=== PATIENT | female | born 1940 | race Caucasian/White ===

== ENCOUNTER 2020-07-21 08:00 | Outpatient (RCR) | payer MEDICARE, OTHER, SELFPAY ==
[2020-07-21 08:03] VITALS: BP 143/72; PULSE 89; RESP 16; TEMP 35.7; BMI 39.4
--- NOTE | 2020-07-21 09:47 | HP.PCM_ITS ---
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 (2) Lymphedema of left lower extremity Status: Chronic Code(s): I89.0 - Lymphedema, not elsewhere classified (3) Peripheral venous insufficiency Status: Chronic (4) Type 2 diabetes mellitus with other circulatory complications Status: Chronic Code(s): E11.59 - Type 2 diabetes mellitus with other circulatory complications (5) Chronic pain of left heel Status: Acute Code(s): M79.672 - Pain in left foot; G89.29 - Other chronic pain (6) Cellulitis of left leg without foot Status: Acute Code(s): L03.116 - Cellulitis of left lower limb History of Present Illness Date of Service: 07/21/20 Chief Complaint: bilateral leg swelling History of Wound: 74 year old woman with longstanding history of L leg wounds due to swelling from venous insufficiency and lymphedema. She has had venous and arterial testing at [facility], but we do not have these results, and they did not fax them after our request for them. 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 Arterial study reveals PETAR >1 multiphasic on the L and multiphasic waveforms on the R. She presents at the request of [facility] due to leg wounds that occur, heal, and then recur 1 month later. She has been wearing tubigrips with 6 inch Deandre wraps over top and has tolerated them well. She has her new lymphedema pump, and it is working much better, only using it on the L leg. She sleeps flat at night, tries to stay active (walks with a walker), and keeps her legs elevated while resting. She is here for the whole in the bottom of her left heel. She states it started with a bone spur on the left heel that was had surgery and never closed. She states this was around 2007. Since then she has been going to the wound center and [facility] and they are using Ginny and nothing is getting done as she says. X-rays were obtained we will obtain x-rays and any other studies that they have done at [facility] before we continue with an MRI of the left foot. She is extremely tender to palpate around the area. The need to offload totally on that left foot. She is currently on cephalexin and doxycycline for the infection. Past Medical History Past Medical History: Chronic Problems Non-pressure chronic ulcer of left heel and midfoot with fat layer exposed (Chronic) Peripheral venous insufficiency (Chronic) Lymphedema of left lower extremity (Chronic) Localized edema (Chronic) Type 2 diabetes mellitus with other circulatory complications (Chronic) Past Medical History: Chronic open wound left heel Surgical History: noncontributory Allergies/Adverse Reactions: Allergies Influenza Virus Vaccines Allergy (Verified 06/29/15 14:16) Hives Iodinated Contrast Media [CONTRASTS] Allergy (Verified 07/21/20 08:31) Rash Penicillins Allergy (Verified 06/29/15 14:16) Anaphylaxis caffeine [From Cafergot] Adverse Reaction (Verified 06/29/15 14:15) Nausea/Vom/Diarrhea ergotamine tartrate [From Cafergot] Adverse Reaction (Verified 06/29/15 14:15) Nausea/Vom/Diarrhea GARLIC OIL Allergy (Uncoded 07/21/20 08:31) Anaphylaxis Home Medications: Ambulatory Orders Medication Instructions Recorded Acetaminophen [Tylenol] 650 mg PO Q4H PRN PRN 06/29/15 Aspirin [Aspirin, Baby] 81 mg PO DAILY@0800 06/29/15 Docusate Sodium [Colace] 100 mg PO DAILY 06/29/15 Doxycycline Hyclate 100 mg PO BID 06/29/15 Furosemide 20 mg PO DAILY 06/29/15 Guaifen/Dextromethorphan/PE 5 ml PO 4X/DAY PRN PRN 06/29/15 [Tussi-Pres Pediatric Liq Packt] Insulin Aspart [Novolog] 6 unit SC BID 06/29/15 Insulin Aspart [Novolog] 16 unit SC DINNER 06/29/15 Insulin Glargine,Hum.rec.anlog 50 unit SC DAILY 06/29/15 [Lantus] Lisinopril [Zestril] 30 mg PO DAILY 06/29/15 Loperamide HCl [Loperamide] 2 mg PO Q6H PRN PRN 06/29/15 Magnesium Hydroxide [Milk Of 30 ml PO DAILY PRN PRN 06/29/15 Magnesia] Ondansetron [Zofran] 4 mg PO Q8H PRN PRN 06/29/15 Vits A,C,E/Lutein/Minerals 1 each PO DAILY 06/29/15 [Ocuvite with Lutein Tablet] Acetaminophen [Tylenol Extra 500 mg PO Q6H PRN PRN 07/21/20 Strength] Atorvastatin Calcium [Lipitor] 40 mg PO QHS 07/21/20 Cephalexin [Keflex] 500 mg PO 4X/DAY 07/21/20 Clopidogrel Bisulfate [Plavix] 75 mg PO DAILY 07/21/20 Cyanocobalamin (Vitamin B-12) 1,000 mcg PO DAILY 07/21/20 [Vitamin B-12] Flaxseed Oil 1,200 mg PO TID 07/21/20 Guaifenesin [Mucinex] 600 mg PO BID 07/21/20 Hydrocortisone 1% Oint [Hytone] 1 applic TOPICAL TID PRN 07/21/20 Insulin Aspart [Novolog Flexpen 8 units SC BREAKFAST 07/21/20 ([facility])] Insulin Aspart [Novolog Flexpen 13 units SC DAILY 07/21/20 ([facility])] Latanoprost 0.005% [Xalatan 1 drp EACH EYE QHS 07/21/20 Opthalmic] Metoprolol Tartrate 25 mg PO BID 07/21/20 Polyethylene Glycol 3350 [Miralax] 17 gm PO BID PRN 07/21/20 Timolol 0.5% [Timoptic] 1 drp EACH EYE BID 07/21/20 Lives: Alone, [facility] - Assisted living Smoking Status: Never smoker Tobacco Use: Non-smoker Alcohol: None Drugs: None Review of Systems Constitutional: Denies: Chills, Fever Eyes: Denies: Blurred vision, Drainage, Pain HEENT: Denies: Difficulty Hearing, Difficulty Swallowing, Sore Throat, Visual Changes Cardiovascular: Denies: Chest Pain, Palpitations, Syncope Respiratory: Denies: Cough, Shortness of Breath Gastrointestinal: Denies: Abdominal Pain, Nausea, Vomiting Genitourinary: Denies: Dysuria, Frequency Musculoskeletal: Reports: - - Left leg from knee down swollen and red. Denies: Joint Pain, Muscle pain Skin: Reports: Rash, Skin Changes, Wounds - He heel. Denies: Jaundice Neurological: Denies: Balance problems, Change in Speech, Difficulty swallowing, Focal weakness Psychiatric: Denies: Anxiety, Depression Endocrine: Denies: Change in Body Habitus Hematologic/ Lymphatic: Reports: Hx of blood clot. Denies: Adenopathy - Physical Exam Vital Signs Temp Pulse Resp BP 96.2 F L 89 16 143/72 H 07/21/20 08:03 07/21/20 08:03 07/21/20 08:03 07/21/20 08:03 General: Oriented x3, Cooperative, Well developed HEENT: Atraumatic, PERRLA Oral: Moist Mucosa Neck: Supple, No JVD Lungs: Clear to auscultation, Normal air movement Cardiovascular: Regular rate, Regular Rhythm Abdomen: Bowel Sounds Present, Soft, Non Tender, No Hepato-splenomegaly Extremities: No clubbing, Edema - Left leg lymphedema and cellulitis Skin: Ulcer/ Wound - Left heel wound healing from 2007 per patient foot erythematous at the heel Wound Measurements and Assessment WC - Nurse 1 - General Ulcer Measurement Start: 07/21/20 08:02 Freq: Status: Active Protocol: Activity Type Activity Date Activity User E-Sign Co-Sign Detail Recorded Client Recorded Date Recorded By Document 07/21/20 08:03 [facility] [id number] 07/21/20 08:28 [facility] 07/21/20 08:03 Wound Center Nurse 1 [Ulcer Assessment] #1- L PLANTAR HEEL\ -Combined with other wound No -Current Size (cm) - Length 0.4 -Current Size (cm) - Width 0.2 -Current Size (cm) - Depth 0.3 -Total Square Cm 0.08 -Date of Last Picture (Recall this 07/21/20 field) -Photo Taken Yes -Epithelialization None Present -Tunneling No -Undermining/Tunneling Yes -Undermining/Tunneling Starts (O' 12 clock) -Undermining/Tunneling Ends (O'clock) 12 -Maximum Distance (cm) 0.3 -Circular Undermining Yes -Exudate Amt Small -Exudate Type Serosanguineous -Wound Margin Distinct, Outline Attached -Granulation Amt Large (67-100%) -Granulation Quality [place] -Slough/Fibrin Yes -Necrosis Amt Small (1-33%) -Necrotic Tissue Type Adherent Slough -Texture (Stacy-wound Skin Appearance) Assessed, Scarring -Moisture (Stacy-wound Skin Appearance Assessed,Dry/ ) Scaly -Color (Stacy-wound Skin Appearance) Assessed -Temperature (Stacy-wound Skin No Abnormality Appearance) (Pt Warm) -Tenderness on Palpation (Stacy-wound Yes Skin Appearance) -Ulcer Cleansing Rinsed/ Irrigated with Saline -Foul Odor after Cleansing No -Anesthetic Used 5% Lidocaine Gel [Edema Assessment] -Lower Limb Edema Present Yes -Right Calf (cm) 41.2 -Right Ankle (cm) 24.4 -Left Calf (cm) 59.3 -Left Ankle (cm) 28.6 WC - Nurse 2 - General Ulcer CM Notes Start: 07/21/20 08:02 Freq: Status: Active Protocol: Activity Type Activity Date Activity User E-Sign Co-Sign Detail Recorded Client Recorded Date Recorded By Document 07/21/20 08:56 MW [id number] 07/21/20 09:05 MW 07/21/20 08:56 Wound Center Nurse 2 [Procedure/Treatment] #1- L PLANTAR HEEL\ -Time 08:56 -Correct Patient Yes -Correct Side, Site, Position Yes -Correct Procedure Yes -Procedure Performed Yes -Type of Procedure Debridement -Clinical Debridement Subcutaneous -Tissue Removed Subcutaneous -Post Debridement (cm) - Length 0.5 -Post Debridement (cm) - Width 0.3 -Post Debridement (cm) - Depth 0.3 -Total Square (Post) (cm) 0.15 -Area of Debridement (cm) - Length 0.5 -Area of Debridement (cm) - Width 0.3 -Total Square (Area) (cm) 0.15 -Tunneling No -Undermining/Tunneling No -Circular Undermining No -Wound/Ulcer Outcome Not Healed -Ulcer Cleansing Rinsed/ Irrigated with Saline -Foul Odor after Cleansing No -Bioengineered Tissue No -Bleeding Controlled with Pressure -Offloading No -Treatment Response Procedure Tolerated Well -Debridement - Subq, 1st 20sq cm Yes [See Physician Procedure note for Specifics] Pain Scale: 0-10 Numeric [Pain] -Is Patient Pain Free? Yes - Nurse 3 - General Ulcer D/C NN Start: 07/21/20 08:02 Freq: Status: Active Protocol: Activity Type Activity Date Activity User E-Sign Co-Sign Detail Recorded Client Recorded Date Recorded By Document 07/21/20 09:30 [facility] [id number] 07/21/20 09:31 [facility] 07/21/20 09:30 Wound Care Nurse 3 [Wound Dressing] #1- L PLANTAR HEEL\ -Ulcer Cleansing Rinsed/ Irrigated with Saline -Foul Odor after Cleansing No -Primary Dressing Applied Promogran -Primary Dressing Covered/Secured Dry Gauze & with Roll Gauze, Secured with Tape,Other -Other Covering HEEL HAT -Promogran 2 [Compression Applied] Right -Other OWN COMPRESSION STOCKING Left -Compression Wrap Deandre Wrap [Post Procedure Tolerated] -Treatment Response Procedure Tolerated Well Pain Scale: 0-10 Numeric [Pain] -Is Patient Pain Free? Yes WC - Visit Discharge [Visit Discharge Information] -Discharge Condition Stable -Ambulatory Status Wheelchair -Transportation TRANSPORT [Facility Notification] -Other ASSISTED LIVING Musculoskeletal: No Tenderness to Palpation of Joints or Extremities Lymphatic: No Cervical, Supraclavicular, or Inguinal Adenopathy Neurological: Cranial nerves II-XII grossly intact, Neuro grossly intact Psych/Mental Status: Normal Affect, Appropriate, Alert and oriented to time, place, person, mood and affect Debridement Note Post-Debridement Measurements/Treatment WC - Nurse 2 - General Ulcer CM Notes Start: 07/21/20 08:02 Freq: Status: Active Protocol: Activity Type Activity Date Activity User E-Sign Co-Sign Detail Recorded Client Recorded Date Recorded By Document 07/21/20 08:56 MW [id number] 07/21/20 09:05 MW 07/21/20 08:56 Wound Center Nurse 2 #1- L PLANTAR HEEL\ -Time 08:56 -Correct Patient Yes -Correct Side, Site, Position Yes -Correct Procedure Yes -Procedure Performed Yes -Type of Procedure Debridement -Clinical Debridement Subcutaneous -Tissue Removed Subcutaneous -Post Debridement (cm) - Length 0.5 -Post Debridement (cm) - Width 0.3 -Post Debridement (cm) - Depth 0.3 -Total Square (Post) (cm) 0.15 -Area of Debridement (cm) - Length 0.5 -Area of Debridement (cm) - Width 0.3 -Total Square (Area) (cm) 0.15 -Tunneling No -Undermining/Tunneling No -Circular Undermining No -Wound/Ulcer Outcome Not Healed -Ulcer Cleansing Rinsed/ Irrigated with Saline -Foul Odor after Cleansing No -Bioengineered Tissue No -Bleeding Controlled with Pressure -Offloading No -Treatment Response Procedure Tolerated Well -Debridement - Subq, 1st 20sq cm Yes Pain Scale: 0-10 Numeric Is Patient Pain Free? Yes - Nurse 3 - General Ulcer D/C NN Start: 07/21/20 08:02 Freq: Status: Active Protocol: Activity Type Activity Date Activity User E-Sign Co-Sign Detail Recorded Client Recorded Date Recorded By Document 07/21/20 09:30 [facility] [id number] 07/21/20 09:31 [facility] 07/21/20 09:30 Wound Care Nurse 3 #1- L PLANTAR HEEL\ -Ulcer Cleansing Rinsed/ Irrigated with Saline -Foul Odor after Cleansing No -Primary Dressing Applied Promogran -Primary Dressing Covered/Secured with Dry Gauze & Roll Gauze, Secured with Tape,Other -Other Covering HEEL HAT -Promogran 2 Right -Other OWN COMPRESSION STOCKING Left -Compression Wrap Deandre Wrap Treatment Response Procedure Tolerated Well Pain Scale: 0-10 Numeric Is Patient Pain Free? Yes WC - Visit Discharge Discharge Condition Stable Ambulatory Status Wheelchair Transportation TRANSPORT Other ASSISTED LIVING Wound debrided: He heel Type of Debridement: Excisional debridement Anesthesia Used: 5% Lidocaine Gel Depth: Down to and including healthy tissue, in the subcutaneous layer Percentage of wound debrided: 100 Instrument Used: 3mm curette Tissue Removed: Devitalized tissue callus Severity: Limited To Skin Breakdown Assessment/Plan Collect x-rays and information from [facility] wound center. Aerobic and anaerobic cultures obtained Assessment: Lymphedema left leg. Cellulitis left leg. Chronic open wound left heel with infection. Diabetes type 2 Plan: Wash left heel with Hibiclens or antibacterial soap and apply Promogran to site cover with Adaptic and gauze and Javed. Tubigrip and Deandre wraps to left leg. Follow-up in 2 weeks. We will call with results of cultures and obtain information from previous care
== END 2020-07-30 23:59 ==
LOC: WC 08:00
PROVIDERS: PCP Pediatrics Pediatric Endocrinology; Referring Provider Podiatrist Foot & Ankle Surgery
DX: E11.621 Type 2 diabetes mellitus with foot ulcer (principal); L97.422 Non-pressure chronic ulcer of left heel and midfoot with fat layer exposed; I89.0 Lymphedema, not elsewhere classified; E11.59 Type 2 diabetes mellitus with other circulatory complications; M79.672 Pain in left foot; G89.29 Other chronic pain; L03.116 Cellulitis of left lower limb; I87.2 Venous insufficiency (chronic) (peripheral); Z79.4 Long term (current) use of insulin; Z79.82 Long term (current) use of aspirin; Z79.899 Other long term (current) drug therapy; Z88.0 Allergy status to penicillin; Z88.8 Allergy status to other drugs, medicaments and biological substances
CPT/HCPCS: 11042; 87070; 87075; 87205; 99203; G0463

== ENCOUNTER 2020-08-18 10:30 | Outpatient (RCR) | payer MEDICARE, OTHER, SELFPAY ==
[2020-07-31 00:14] VITALS: BP 143/72; PULSE 89; RESP 16; TEMP 35.7
[2020-08-04 10:41] VITALS: BP 135/63; PULSE 79; RESP 18; TEMP 36; BMI 39.4
--- NOTE | 2020-08-04 12:51 | PCM.WC.PN ---
History of Present Illness Date of Service: 08/04/20 Chief Complaint: bilateral leg swelling History of Wound: 74 year old woman with longstanding history of L leg wounds due to swelling from venous insufficiency and lymphedema. She has had venous and arterial testing at [facility], but we do not have these results, and they did not fax them after our request for them. 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 Arterial study reveals PETAR >1 multiphasic on the L and multiphasic waveforms on the R. She presents at the request of [facility] due to leg wounds that occur, heal, and then recur 1 month later. She has been wearing tubigrips with 6 inch Deandre wraps over top and has tolerated them well. She has her new lymphedema pump, and it is working much better, only using it on the L leg. She sleeps flat at night, tries to stay active (walks with a walker), and keeps her legs elevated while resting. She is here for the whole in the bottom of her left heel. She states it started with a bone spur on the left heel that was had surgery and never closed. She states this was around 2007. Since then she has been going to the wound center and [place] and they are using Ginny and nothing is getting done as she says. X-rays were obtained we will obtain x-rays and any other studies that they have done at [facility] before we continue with an MRI of the left foot. She is extremely tender to palpate around the area. The need to offload totally on that left foot. She is currently on cephalexin and doxycycline for the infection. 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 Will change to Promogran and see if helps. patien has to pay for travel so will schedule QOWeek. Vital Signs: Vital Signs Temp Pulse Resp BP 96.8 F L 79 18 135/63 H 08/04/20 10:41 08/04/20 10:41 08/04/20 10:41 08/04/20 10:41 Oxygen Delivery Method Room Air Weight: 230 lb Body Mass Index (BMI) 39.4 Assessment & Plan Assessment/Plan (1) Non-pressure chronic ulcer of left heel and midfoot with fat layer exposed: Status: Chronic Code(s): L97.422 - Non-pressure chronic ulcer of left heel and midfoot with fat layer exposed Plan: Wash the area with hibiclens then apply the promogran and moisten then cover with gauze and tape qd follow up in 2 weeks Get the x-ray done at the assisted living facility (2) Chronic pain of left heel: Status: Acute Code(s): M79.672 - Pain in left foot; G89.29 - Other chronic pain (3) Peripheral venous insufficiency: Status: Chronic (4) Lymphedema of left lower extremity: Status: Chronic Code(s): I89.0 - Lymphedema, not elsewhere classified (5) Type 2 diabetes mellitus with other circulatory complications: Status: Chronic Code(s): E11.59 - Type 2 diabetes mellitus with other circulatory complications Physical Exam Const oriented x3 General Appearance: cooperative Exam Limitations: no limitations HEENT normocephalic Head and Scalp: normal to inspection Face and Sinus: normal facial exam Nose: external nose normal General Ear: hearing grossly impaired External Ear: external ears normal Mouth: oral and palatal mucosa normal Eyes PERRL General Eye: normal appearance of both eyes Neck full ROM General: normal visual inspection Resp normal respiratory effort Effort and Inspection: able to speak in complete sentences Auscultation: clear to auscultation bilaterally Cardio regular rate and regular rhythm Palpation: normal PMI Rate: regular rate Rhythm: regular rhythm GI Auscultation: normoactive bowel sounds Palpation: soft and no hepatosplenomegaly external exam normal Back/Spine Cervical Spine: cervical ROM normal Thoracic Spine / Upper Back: normal to inspection Lumbar Spine / Lower Back: normal to inspection Extremity normal to inspection General Extremity: normal exam except as noted Skin no rashes or lesions noted Wounds: wounds noted Wound Narrative: L heel plantar side Will also order x-ray of the foot Neuro oriented x3 Psych Appearance: grossly normal Speech: normal speech Thought Content: normal thought content Judgement: judgement good Debridement Note Debridement Note Post-Debridement Measurements and Additional Note: Post-Debridement Measurements/Treatment WC - Nurse 2 - General Ulcer CM Notes Start: 08/04/20 10:41 Freq: Status: Active Protocol: Activity Type Activity Date Activity User E-Sign Co-Sign Detail Recorded Client Recorded Date Recorded By Document 05/05/21 11:07 MW [id number] 08/04/20 11:12 MW 08/04/20 11:07 Wound Center Nurse 2 #1- L PLANTAR HEEL\ -Time 11:08 -Correct Patient Yes -Correct Side, Site, Position Yes -Correct Procedure Yes -Procedure Performed Yes -Type of Procedure Debridement -Clinical Debridement Subcutaneous -Tissue Removed Subcutaneous -Post Debridement (cm) - Length 0.9 -Post Debridement (cm) - Width 0.6 -Post Debridement (cm) - Depth 0.3 -Total Square (Post) (cm) 0.54 -Area of Debridement (cm) - Length 0.9 -Area of Debridement (cm) - Width 0.6 -Total Square (Area) (cm) 0.54 -Tunneling No -Undermining/Tunneling No -Circular Undermining No -Wound/Ulcer Outcome Not Healed -Ulcer Cleansing Rinsed/ Irrigated with Saline -Foul Odor after Cleansing No -Bioengineered Tissue No -Bleeding Controlled with Pressure -Offloading No -Debridement - Subq, 1st 20sq cm Yes Pain Scale: 0-10 Numeric Is Patient Pain Free? Yes Wound debrided: heel Laterality: Left Type of Debridement: Excisional debridement Anesthesia Used: 5% Lidocaine Gel Depth: Down to and including healthy tissue and in the subcutaneous layer Percentage of wound debrided: 100 Instrument Used: 3mm curette Tissue Removed: slough and fibrin Severity: Fat Layer Exposed Amount of bleeding with debridement: None Bleeding Controlled with: Pressure Patient tolerated procedure: Patient tolerated procedure well
[2020-08-18 10:32] VITALS: BP 135/52; PULSE 77; RESP 18; TEMP 36.8; BMI 39.4
--- NOTE | 2020-08-18 13:02 | PCM.WC.PN ---
History of Present Illness Date of Service: 08/19/20 Chief Complaint: bilateral leg swelling History of Wound: 74 year old woman with longstanding history of L leg wounds due to swelling from venous insufficiency and lymphedema. She has had venous and arterial testing at [facility], but we do not have these results, and they did not fax them after our request for them. 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 Arterial study reveals PETAR >1 multiphasic on the L and multiphasic waveforms on the R. She presents at the request of [facility] due to leg wounds that occur, heal, and then recur 1 month later. She has been wearing tubigrips with 6 inch Deandre wraps over top and has tolerated them well. She has her new lymphedema pump, and it is working much better, only using it on the L leg. She sleeps flat at night, tries to stay active (walks with a walker), and keeps her legs elevated while resting. She is here for the whole in the bottom of her left heel. She states it started with a bone spur on the left heel that was had surgery and never closed. She states this was around 2007. Since then she has been going to the wound center and [place] and they are using Ginny and nothing is getting done as she says. X-rays were obtained we will obtain x-rays and any other studies that they have done at [place] before we continue with an MRI of the left foot. She is extremely tender to palpate around the area. The need to offload totally on that left foot. She is currently on cephalexin and doxycycline for the infection. Subjective Subjective Still very painful but no sign of infection Objective Data Objective Data No sign of infection and macerated around the edgeof the wound but appears smaller and more shallow. Vital Signs: Vital Signs Temp Pulse Resp BP 98.2 F 77 18 135/52 H 08/18/20 10:32 08/18/20 10:32 08/18/20 10:32 08/18/20 10:32 Oxygen Delivery Method Room Air Weight: 230 lb Body Mass Index (BMI) 39.4 Physical Exam Const oriented x3 General Appearance: cooperative Exam Limitations: no limitations HEENT normocephalic Head and Scalp: normal to inspection Face and Sinus: normal facial exam Nose: external nose normal General Ear: hearing grossly impaired External Ear: external ears normal Mouth: oral and palatal mucosa normal Eyes PERRL General Eye: normal appearance of both eyes Neck full ROM General: normal visual inspection Resp normal respiratory effort Effort and Inspection: able to speak in complete sentences Auscultation: clear to auscultation bilaterally Cardio regular rate and regular rhythm Palpation: normal PMI Rate: regular rate Rhythm: regular rhythm GI Auscultation: normoactive bowel sounds Palpation: soft and no hepatosplenomegaly external exam normal Back/Spine Cervical Spine: cervical ROM normal Thoracic Spine / Upper Back: normal to inspection Lumbar Spine / Lower Back: normal to inspection Extremity normal to inspection General Extremity: normal exam except as noted Skin no rashes or lesions noted Neuro oriented x3 Psych Appearance: grossly normal Speech: normal speech Thought Content: normal thought content Judgement: judgement good Debridement Note Debridement Note Post-Debridement Measurements and Additional Note: Post-Debridement Measurements/Treatment - Nurse 1 - General Ulcer Assessment Start: 08/04/20 10:41 Freq: Status: Active Protocol: CHERRY Activity Type Activity Date Activity User E-Sign Co-Sign Detail Recorded Client Recorded Date Recorded By Document 08/04/20 10:41 [id number] 08/04/20 10:48 Document 08/18/20 10:32 [facility] [id number] 08/18/20 10:40 [facility] 08/04/20 08/18/20 10:41 10:32 - Today's Visit Information Type of service Follow-up Visit Follow-up Visit (Physician/OIL FIELD RIG BUILDER (Physician/OIL FIELD RIG BUILDER ) ) Arrival Mode Ambulatory, Ambulatory, Walker Walker Transfer Assistance None None Patient Identification Verified (Name & Yes Yes ) Patient Requires Transmission-Based No No Precautions Finger Stick Blood Sugar(mg/dl) (if 117 indicated): Blood Sugar Stated by Patient Height and Weight Body Mass Index (BMI) 39.4 39.4 BMI Classification Obese Obese Vital Signs Temperature (97.8 F-99.1 F) 96.8 F L 98.2 F Temperature Source Temporal Temporal Pulse Rate (60-100) 79 77 Pulse Location Monitor Monitor Respiratory Rate (12-18) 18 18 Respiratory rate source Observation Observation Oxygen Delivery Method Room Air Room Air Blood Pressure (90/60-120/80) 135/63 H 135/52 H Blood Pressure Mean (mm Hg) 87 79 Source Monitor Monitor Position Sitting Sitting Blood Pressure Location Left Arm Left Forearm History Since Last Visit- (Skip if this is Patient's initial visit) Have you changed medications since your No No last visit? Any new allergies or adverse reactions No No Had a fall/change in ADL's that may No No increase risk of falls Signs or symptoms of abuse and/or No No neglect since last visit Have you been in the hospital since your No No last visit? Has dressing in place as prescribed Yes Yes Has compression in place as prescribed Yes N/A Has offloadiing in place as prescribed Yes Yes Experienced any changes in pain level or No No management Left Footwear Surgical Shoe Surgical Shoe with pressure with pressure relief insole relief insole Right Footwear Regular Shoe Regular Shoe Pain Scale: 0-10 Numeric Is Patient Pain Free? Yes Yes - Nurse 1 - General Ulcer Measurement Start: 08/04/20 10:41 Freq: Status: Active Protocol: Activity Type Activity Date Activity User E-Sign Co-Sign Detail Recorded Client Recorded Date Recorded By Document 08/04/20 10:41 [id number] 08/04/20 10:48 KR Document 08/18/20 10:32 [facility] [id number] 08/18/20 10:40 [facility] 08/04/20 08/18/20 10:41 10:32 Wound Center Nurse 1 #1- L PLANTAR HEEL\ -Combined with other wound No No -Current Size (cm) - Length 0.6 0.5 -Current Size (cm) - Width 0.5 0.3 -Current Size (cm) - Depth 0.2 0.3 -Total Square Cm 0.30 0.15 -Photo Taken No No -Epithelialization None Present None Present -Tunneling No No -Undermining/Tunneling No No -Circular Undermining No No -Exudate Amt Medium Medium -Exudate Type Serosanguineous Serosanguineous -Wound Margin Distinct, Distinct, Outline Outline Attached Attached -Granulation Amt Large (67-100%) Large (67-100%) -Granulation Quality [place] -Slough/Fibrin Yes Yes -Necrosis Amt Small (1-33%) Small (1-33%) -Necrotic Tissue Type Adherent Slough Adherent Slough -Texture (Stacy-wound Skin Appearance) Assessed, Assessed,Rash Scarring -Moisture (Stcay-wound Skin Appearance) Assessed,Dry/ Assessed, Scaly Maceration,Dry/ Scaly -Color (Stacy-wound Skin Appearance) Assessed Assessed,Palor -Temperature (Stacy-wound Skin No Abnormality No Abnormality Appearance) (Pt Warm) (Pt Warm) -Tenderness on Palpation (Stacy-wound No Yes Skin Appearance) -Ulcer Cleansing Rinsed/ Wound Cleanser Irrigated with Saline -Foul Odor after Cleansing No Yes, Due to Product Use -Anesthetic Used 4% Lidocaine 5% Lidocaine Solution Gel Lower Limb Edema Present Yes Left Calf (cm) 60.2 58.5 Left Ankle (cm) 32.1 25.5 - Nurse 2 - General Ulcer CM Notes Start: 08/04/20 10:41 Freq: Status: Active Protocol: Activity Type Activity Date Activity User E-Sign Co-Sign Detail Recorded Client Recorded Date Recorded By Document 08/04/20 11:07 MW [id number] 08/04/20 11:12 MW Document 08/18/20 10:55 MW [id number] 08/18/20 10:58 MW 08/04/20 08/18/20 11:07 10:55 Wound Center Nurse 2 #1- L PLANTAR HEEL\ -Time 11:08 10:55 -Correct Patient Yes Yes -Correct Side, Site, Position Yes Yes -Correct Procedure Yes Yes -Procedure Performed Yes Yes -Type of Procedure Debridement Debridement -Clinical Debridement Subcutaneous Subcutaneous -Tissue Removed Subcutaneous Subcutaneous -Post Debridement (cm) - Length 0.9 0.7 -Post Debridement (cm) - Width 0.6 0.7 -Post Debridement (cm) - Depth 0.3 0.2 -Total Square (Post) (cm) 0.54 0.49 -Area of Debridement (cm) - Length 0.9 0.7 -Area of Debridement (cm) - Width 0.6 0.7 -Total Square (Area) (cm) 0.54 0.49 -Tunneling No No -Undermining/Tunneling No No -Circular Undermining No No -Wound/Ulcer Outcome Not Healed Not Healed -Ulcer Cleansing Rinsed/ Rinsed/ Irrigated with Irrigated with Saline Saline -Foul Odor after Cleansing No No -Bioengineered Tissue No No -Bleeding Controlled with Pressure Pressure -Offloading No No -Treatment Response Procedure Tolerated Well -Debridement - Subq, 1st 20sq cm Yes Yes Pain Scale: 0-10 Numeric Is Patient Pain Free? Yes Yes - Nurse 3 - General Ulcer D/C NN Start: 08/04/20 10:41 Freq: Status: Active Protocol: Activity Type Activity Date Activity User E-Sign Co-Sign Detail Recorded Client Recorded Date Recorded By Document 08/18/20 11:08 BOB [id number] 08/18/20 11:09 BOB 08/18/20 11:08 Wound Care Nurse 3 #1- L PLANTAR HEEL\ -Primary Dressing Applied Promogran -Primary Dressing Covered/Secured with Dry Gauze,Dry Gauze & Roll Gauze,Secured with Tape -Promogran 1 Pain Scale: 0-10 Numeric Is Patient Pain Free? Yes WC - Visit Discharge Discharge Condition Stable Ambulatory Status Walker Accompanied by [facility] Wound debrided: L heel Type of Debridement: Excisional debridement Anesthesia Used: 5% Lidocaine Gel Depth: Down to and including healthy tissue and in the subcutaneous layer Percentage of wound debrided: 100 Instrument Used: 5mm curette Tissue Removed: devitallized tissue and fibrin Severity: Fat Layer Exposed Amount of bleeding with debridement: Moderate Bleeding Controlled with: Compression and gauze Patient tolerated procedure: Patient tolerated procedure well Assessment/Plan Assessment/Plan (1) Non-pressure chronic ulcer of left heel and midfoot with fat layer exposed: CODE(S): Code(s): L97.422 - Non-pressure chronic ulcer of left heel and midfoot with fat layer exposed PLAN: wash the heel with antibacterial soap and apply Promogran to the area no moisture or adaptic d gauze dressing over top follow up 2 weeks (2) Chronic pain of left heel: CODE(S): Code(s): M79.672 - Pain in left foot; G89.29 - Other chronic pain (3) Cellulitis of left leg without foot: CODE(S): Code(s): L03.116 - Cellulitis of left lower limb PLAN: continue the deandre wraps to the legs (4) Peripheral venous insufficiency: (5) Lymphedema of left lower extremity: CODE(S): Code(s): I89.0 - Lymphedema, not elsewhere classified PLAN: Discuss with Cardiology about bumping legs again
== END 2020-08-30 23:59 ==
LOC: WC 10:30
PROVIDERS: PCP Pediatrics Pediatric Endocrinology; Referring Provider Podiatrist Foot & Ankle Surgery
DX: L97.422 Non-pressure chronic ulcer of left heel and midfoot with fat layer exposed (principal); M79.672 Pain in left foot; G89.29 Other chronic pain; L03.116 Cellulitis of left lower limb; I89.0 Lymphedema, not elsewhere classified; I87.2 Venous insufficiency (chronic) (peripheral); I83.91 Asymptomatic varicose veins of right lower extremity; I82.461 Acute embolism and thrombosis of right calf muscular vein; E11.59 Type 2 diabetes mellitus with other circulatory complications
CPT/HCPCS: 11042

== ENCOUNTER 2020-09-08 10:30 | Outpatient (RCR) | payer MEDICARE, OTHER, SELFPAY ==
[2020-08-31 00:08] VITALS: BP 135/52; PULSE 77; RESP 18; TEMP 36.8
[2020-09-08 10:48] VITALS: BP 148/49; PULSE 72; RESP 16; TEMP 36.2; BMI 39.4
--- NOTE | 2020-09-08 13:20 | PCM.WC.PN ---
History of Present Illness Date of Service: 09/08/20 Chief Complaint: bilateral leg swelling History of Wound: 74 year old woman with longstanding history of L leg wounds due to swelling from venous insufficiency and lymphedema. She has had venous and arterial testing at [facility], but we do not have these results, and they did not fax them after our request for them. 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 Arterial study reveals PETAR >1 multiphasic on the L and multiphasic waveforms on the R. She presents at the request of [facility] due to leg wounds that occur, heal, and then recur 1 month later. She has been wearing tubigrips with 6 inch Deandre wraps over top and has tolerated them well. She has her new lymphedema pump, and it is working much better, only using it on the L leg. She sleeps flat at night, tries to stay active (walks with a walker), and keeps her legs elevated while resting. She is here for the whole in the bottom of her left heel. She states it started with a bone spur on the left heel that was had surgery and never closed. She states this was around 2007. Since then she has been going to the wound center and [place] and they are using Ginny and nothing is getting done as she says. X-rays were obtained we will obtain x-rays and any other studies that they have done at [place] before we continue with an MRI of the left foot. She is extremely tender to palpate around the area. The need to offload totally on that left foot. She is currently on cephalexin and doxycycline for the infection. Subjective Subjective still painful to walk on .Lives in [place] and nurses do the wound care Objective Data Objective Data wound is not moving still bleeds easily no signof infection but needs better off loading Vital Signs: Vital Signs Temp Pulse Resp BP 97.2 F L 72 16 148/49 H 09/08/20 10:48 09/08/20 10:48 09/08/20 10:48 09/08/20 10:48 Oxygen Delivery Method Room Air Weight: 230 lb Body Mass Index (BMI) 39.4 Physical Exam Const oriented x3 General Appearance: cooperative Exam Limitations: no limitations HEENT normocephalic Head and Scalp: normal to inspection Face and Sinus: normal facial exam Nose: external nose normal General Ear: hearing grossly impaired External Ear: external ears normal Mouth: oral and palatal mucosa normal Eyes PERRL General Eye: normal appearance of both eyes Neck full ROM General: normal visual inspection Resp normal respiratory effort Effort and Inspection: able to speak in complete sentences Auscultation: clear to auscultation bilaterally Cardio regular rate and regular rhythm Palpation: normal PMI Rate: regular rate Rhythm: regular rhythm GI Auscultation: normoactive bowel sounds Palpation: soft and no hepatosplenomegaly external exam normal Back/Spine Cervical Spine: cervical ROM normal Thoracic Spine / Upper Back: normal to inspection Lumbar Spine / Lower Back: normal to inspection Extremity normal to inspection General Extremity: normal exam except as noted Skin no rashes or lesions noted Neuro oriented x3 Psych Appearance: grossly normal Speech: normal speech Thought Content: normal thought content Judgement: judgement good Debridement Note Debridement Note Post-Debridement Measurements and Additional Note: Post-Debridement Measurements/Treatment - Nurse 1 - General Ulcer Assessment Start: 09/08/20 10:48 Freq: Status: Active Protocol: CHERRY Activity Type Activity Date Activity User E-Sign Co-Sign Detail Recorded Client Recorded Date Recorded By Document 09/08/20 10:48 [facility] [id number] 09/08/20 10:59 [facility] 09/08/20 10:48 - Today's Visit Information Type of service Follow-up Visit (Physician/TOWER CONTROL OPERATOR ) Arrival Mode Ambulatory, Walker Transfer Assistance None Patient Identification Verified (Name & Yes ) Patient Requires Transmission-Based No Precautions Height and Weight Body Mass Index (BMI) 39.4 BMI Classification Obese Vital Signs Temperature (97.8 F-99.1 F) 97.2 F L Temperature Source Temporal Pulse Rate (60-100) 72 Pulse Location Monitor Respiratory Rate (12-18) 16 Respiratory rate source Observation Oxygen Delivery Method Room Air Blood Pressure (90/60-120/80) 148/49 H Blood Pressure Mean (mm Hg) 82 Source Monitor Position Sitting Blood Pressure Location Right Arm History Since Last Visit- (Skip if this is Patient's initial visit) Have you changed medications since your No last visit? Any new allergies or adverse reactions No Had a fall/change in ADL's that may No increase risk of falls Signs or symptoms of abuse and/or No neglect since last visit Have you been in the hospital since your No last visit? Has dressing in place as prescribed Yes Has compression in place as prescribed N/A Has offloadiing in place as prescribed Yes Experienced any changes in pain level or No management Left Footwear Surgical Shoe with pressure relief insole Right Footwear Regular Shoe Pain Scale: 0-10 Numeric Is Patient Pain Free? Yes - Nurse 1 - General Ulcer Measurement Start: 09/08/20 10:48 Freq: Status: Active Protocol: Activity Type Activity Date Activity User E-Sign Co-Sign Detail Recorded Client Recorded Date Recorded By Document 09/08/20 10:48 [facility] [id number] 09/08/20 10:59 [facility] 09/08/20 10:48 Wound Center Nurse 1 #1- L PLANTAR HEEL\ -Combined with other wound No -Current Size (cm) - Length 0.4 -Current Size (cm) - Width 0.3 -Current Size (cm) - Depth 0.3 -Total Square Cm 0.12 -Photo Taken No -Epithelialization None Present -Tunneling No -Undermining/Tunneling No -Circular Undermining No -Exudate Amt Small -Exudate Type Sanguineous -Wound Margin Distinct, Outline Attached -Granulation Amt Large (67-100%) -Granulation Quality Red -Slough/Fibrin Yes -Necrosis Amt Small (1-33%) -Necrotic Tissue Type Adherent Slough -Texture (Stacy-wound Skin Appearance) Assessed, Scarring -Moisture (Stacy-wound Skin Appearance) Assessed, Maceration -Color (Stacy-wound Skin Appearance) Assessed,Palor -Temperature (Stacy-wound Skin No Abnormality Appearance) (Pt Warm) -Tenderness on Palpation (Stacy-wound Yes Skin Appearance) -Ulcer Cleansing Rinsed/ Irrigated with Saline -Foul Odor after Cleansing No -Anesthetic Used 5% Lidocaine Gel Lower Limb Edema Present Yes Left Calf (cm) 54.8 Left Ankle (cm) 26 WC - Nurse 2 - General Ulcer CM Notes Start: 09/08/20 10:48 Freq: Status: Active Protocol: Activity Type Activity Date Activity User E-Sign Co-Sign Detail Recorded Client Recorded Date Recorded By Document 09/08/20 11:13 MW [id number] 09/08/20 11:14 MW 09/08/20 11:13 Wound Center Nurse 2 #1- L PLANTAR HEEL\ -Time 11:13 -Correct Patient Yes -Correct Side, Site, Position Yes -Correct Procedure Yes -Procedure Performed Yes -Type of Procedure Debridement -Clinical Debridement Subcutaneous -Tissue Removed Subcutaneous -Post Debridement (cm) - Length 0.4 -Post Debridement (cm) - Width 0.3 -Post Debridement (cm) - Depth 0.3 -Total Square (Post) (cm) 0.12 -Area of Debridement (cm) - Length 0.4 -Area of Debridement (cm) - Width 0.3 -Total Square (Area) (cm) 0.12 -Tunneling No -Undermining/Tunneling No -Circular Undermining No -Wound/Ulcer Outcome Not Healed -Ulcer Cleansing Rinsed/ Irrigated with Saline -Foul Odor after Cleansing No -Bioengineered Tissue No -Bleeding Controlled with Pressure -Offloading No -Treatment Response Procedure Tolerated Well -Debridement - Subq, 1st 20sq cm Yes Pain Scale: 0-10 Numeric Is Patient Pain Free? Yes - Nurse 3 - General Ulcer D/C NN Start: 09/08/20 10:48 Freq: Status: Active Protocol: Activity Type Activity Date Activity User E-Sign Co-Sign Detail Recorded Client Recorded Date Recorded By Document 09/08/20 11:24 [facility] [id number] 09/08/20 11:27 [facility] 09/08/20 11:24 Wound Care Nurse 3 #1- L PLANTAR HEEL\ -Ulcer Cleansing Rinsed/ Irrigated with Saline -Foul Odor after Cleansing No -Primary Dressing Applied Promogran -Primary Dressing Covered/Secured with Dry Gauze & Roll Gauze, Secured with Tape,Other -Other Covering heel hat, drsg per ml front end manager -Promogran 1 Left -Compression Wrap Deandre Wrap -Other stockinette against skin Treatment Response Procedure Tolerated Well Pain Scale: 0-10 Numeric Is Patient Pain Free? Yes - Visit Discharge Discharge Condition Stable Ambulatory Status Ambulatory, Walker Other assisted living Wound debrided: L heel Laterality: Left Type of Debridement: Excisional debridement Anesthesia Used: 5% Lidocaine Gel Depth: Down to and including healthy tissue Percentage of wound debrided: 100 Instrument Used: 5mm curette Tissue Removed: fibrin Severity: Fat Layer Exposed Amount of bleeding with debridement: Moderate Bleeding Controlled with: Pressure and Silver Nitrate Patient tolerated procedure: Patient tolerated procedure well Assessment/Plan Assessment/Plan (1) Non-pressure chronic ulcer of left heel and midfoot with fat layer exposed: CODE(S): L97.422 - Non-pressure chronic ulcer of left heel and midfoot with fat layer exposed PLAN: continue packing with promogran then dry gauze and tape to heel. and did put a new pad in her postop shoe to help keep pressure off her heel (2) Chronic pain of left heel: CODE(S): M79.672 - Pain in left foot; G89.29 - Other chronic pain (3) Lymphedema of left lower extremity: CODE(S): I89.0 - Lymphedema, not elsewhere classified PLAN: continue wraps to leg (4) Type 2 diabetes mellitus with other circulatory complications: CODE(S): E11.59 - Type 2 diabetes mellitus with other circulatory complications PLAN: glycemic control
== END 2020-09-29 23:59 ==
LOC: WC 10:30
PROVIDERS: PCP Pediatrics Pediatric Endocrinology; Referring Provider Podiatrist Foot & Ankle Surgery
DX: L97.422 Non-pressure chronic ulcer of left heel and midfoot with fat layer exposed (principal); M79.672 Pain in left foot; G89.29 Other chronic pain; I89.0 Lymphedema, not elsewhere classified; E11.59 Type 2 diabetes mellitus with other circulatory complications
CPT/HCPCS: 11042